=== PATIENT | male | born 1950 | race Caucasian/White ===

== ENCOUNTER 2017-04-10 04:59 | Inpatient (IN) | payer OTHER ==
[~2017-04-10] VITALS: Ht 177.8 cm; Wt 111.1 kg
[~2017-04-10 04:59] MED LIST: CRESTOR20 MG PO; GLUCOPHAGE XR500 MG PO; NEXIUM40 MG PO; NORCO 5-325 TA1 EACH PO; PAXIL40 MG PO; PROMETHAZINE-C120 ML PO; TAMSULOSIN HCL0.4 MG PO; ZPAK PO
[2017-04-10 05:51] VITALS: BP 123/83
[2017-04-10] MEDS ORDERED: FLOMAX0.4 MG PO (06:05)
[2017-04-10 08:46] VITALS: BP 115/73
[2017-04-10 12:36] VITALS: BP 136/77
[2017-04-10] MEDS ORDERED: HYDROCODONE-AP1 EAC6 PO (13:31)
[2017-04-10 15:58] VITALS: BP 135/82
== END 2017-04-10 17:48 | disposition short-term general hospital (02) | DRG 700 ==
LOC: 4W 04:59
DX: S37.031A Laceration of right kidney, unspecified degree, initial encounter (principal); I10 Essential (primary) hypertension; K21.9 Gastro-esophageal reflux disease without esophagitis; E11.9 Type 2 diabetes mellitus without complications; F32.9 Major depressive disorder, single episode, unspecified; F41.9 Anxiety disorder, unspecified; F17.210 Nicotine dependence, cigarettes, uncomplicated; E78.5 Hyperlipidemia, unspecified; Z79.899 Other long term (current) drug therapy; Z83.6 Family history of other diseases of the respiratory system; Z80.9 Family history of malignant neoplasm, unspecified; X58.XXXA Exposure to other specified factors, initial encounter; Y93.89 Activity, other specified; Y92.89 Other specified places as the place of occurrence of the external cause; Y99.8 Other external cause status; S37.011A Minor contusion of right kidney, initial encounter
CPT/HCPCS: 10045

== ENCOUNTER → 2017-05-05 | Outpatient (CLI) | payer OTHER ==
[~2017-05-05] MED LIST changes: +FLOMAX0.4 MG PO; +HYDROCODONE-AP1 EAC6 PO
== END ==
LOC: ULTRA 12:10
DX: S37.031D Laceration of right kidney, unspecified degree, subsequent encounter (principal); X58.XXXD Exposure to other specified factors, subsequent encounter; Y92.89 Other specified places as the place of occurrence of the external cause; Y99.8 Other external cause status

== ENCOUNTER → 2019-12-14 | Outpatient (CLI) | payer OTHER ==
[~2019-12-14] MED LIST changes: +ALLER-CHLOR4 MG PO; +BLACK ELDERBER1 EACH PO; +CARVEDILOL12.5 MG PO; +CIALIS5 MG PO; +COZAAR 25 MG TA25 MG PO; +CRANBERRY PLUS1 EAC1 PO; +GLUCOSAMINE CO1 EACH PO; +IBUPROFEN200 M1 PO; +LORATIDINE 10 M10 M1 PO; +MELATONIN10 M3 PO; +NASAL DECONGEST10 MG PO
== END ==
LOC: SJCVCIMAG 10:05
DX: I08.2 Rheumatic disorders of both aortic and tricuspid valves (principal); I45.2 Bifascicular block; R94.31 Abnormal electrocardiogram [ECG] [EKG]; I11.0 Hypertensive heart disease with heart failure; I50.42 Chronic combined systolic (congestive) and diastolic (congestive) heart failure; I44.7 Left bundle-branch block, unspecified; I42.0 Dilated cardiomyopathy; E78.5 Hyperlipidemia, unspecified; I71.4 Abdominal aortic aneurysm, without rupture; E11.9 Type 2 diabetes mellitus without complications; K21.9 Gastro-esophageal reflux disease without esophagitis; E78.00 Pure hypercholesterolemia, unspecified; F17.210 Nicotine dependence, cigarettes, uncomplicated; Z79.899 Other long term (current) drug therapy

== ENCOUNTER → 2019-12-17 | Outpatient (CLI) | payer OTHER | LOC: SJCVC 12:44 | DX: I45.2 Bifascicular block (principal); I42.8 Other cardiomyopathies; R94.31 Abnormal electrocardiogram [ECG] [EKG]; I50.22 Chronic systolic (congestive) heart failure; I25.10 Atherosclerotic heart disease of native coronary artery without angina pectoris; E11.9 Type 2 diabetes mellitus without complications; Z95.828 Presence of other vascular implants and grafts; F17.210 Nicotine dependence, cigarettes, uncomplicated; Z72.89 Other problems related to lifestyle ==

== ENCOUNTER 2020-01-09 06:32 | Observation (INO) | payer OTHER ==
[2020-01-09] VITALS (10 sets, daily range): BP systolic 89–122; BP diastolic 58–81
[~2020-01-09] VITALS: Ht 180.3 cm; Wt 108.0 kg
--- NOTE | ~2020-01-09 | D ---
[facility] [place] [address] DISCHARGE SUMMARY Name: GABE GARDINER Room #: 207-P [facility] M.R.#: [id number] Admission: 01/09/20 Attend Phys: Gagan Trejo MD Discharge: Date of : 46 Report #: [id number] THIS REPORT FOR: cc: Dioni Webb,Gagan Mayes MD ~ THIS REPORT FOR: //name// CC: Gagan Webb DISCHARGE DIAGNOSIS: Nonischemic cardiomyopathy. PROCEDURES PERFORMED: Bi-V ICD implantation. HISTORY: The patient is a 69-year-old male with history of nonischemic cardiomyopathy, QRS duration 178 milliseconds, [place] [employer] functional class 2-3 heart failure symptoms, who was here for biventricular ICD implantation. He underwent successful implantation of his device with a [employer] meat. He did have some limited targets on his coronary sinus. He had an anterolateral branch and a middle cardiac vein. I was able to get the lead into the anterolateral branch with good pacing and sensing thresholds. There were no procedure-related complications. HOSPITAL COURSE: The patient was monitored in the CCU overnight and did well. He did have some left shoulder pain post-device implant, which actually was related to his arm sling and this resolved when I took him out of the sling. Chest x-ray last night showed no pneumothorax. On the day of discharge, he was doing well. He denied any chest pain, shortness of breath, PND, orthopnea, presyncope or syncope. He had no fevers or chills. PHYSICAL EXAMINATION: GENERAL: No acute distress. HEENT: Oropharynx clear. NECK: Supple, no thyromegaly. HEART: Regular rate and rhythm with no murmurs, rubs or gallops. LUNGS: Clear to auscultation bilaterally. ABDOMEN: Soft, nontender. EXTREMITIES: No clubbing, cyanosis, edema. Incision was healing nicely with no significant bruising or hematoma. Device interrogation was performed, which showed normal device function and pacing thresholds. No arrhythmias were noted. He also underwent a PA lateral chest x-ray, which showed stable lead position and no pneumothorax. As such, he [address] [address] DISCHARGE SUMMARY Name[facility] #: [address] [place] [address]..#: [id number] Admission: 01/09/20 Attend Phys: Gagan Trejo MD Discharge: Date of : 46 Report #: [id number] was deemed stable for discharge home. He will continue with his same outpatient medications and I will see him in 7-10 days for site check. By: [id number] Gagan Trejo MD /nt
[~2020-01-09 06:32] MED LIST changes: -ALLER-CHLOR4 MG PO; -BLACK ELDERBER1 EACH PO; -CARVEDILOL12.5 MG PO; -CIALIS5 MG PO; -COZAAR 25 MG TA25 MG PO; -CRANBERRY PLUS1 EAC1 PO; -GLUCOSAMINE CO1 EACH PO; -IBUPROFEN200 M1 PO; -LORATIDINE 10 M10 M1 PO; -MELATONIN10 M3 PO; -NASAL DECONGEST10 MG PO
[2020-01-09 07:21] LABS: ABSOLUTE NEUTROPHILS 6.1 thou/uL (1.4-8.2); BASOPHILS 0.6 % (0.0-2.0); EOSINOPHILS 3.3 % (0.0-3.0); HEMATOCRIT 44.8 % (42.0-52.0); HEMOGLOBIN 14.9 gm/dL (14.0-18.0); LYMPHOCYTES 17.6 % (24.0-44.0); MCHC 33.3 g/dL (28.0-37.0); MONOCYTES 8.5 % (1.0-8.0); PLATELET COUNT 213 thou/uL (150-400); RBC 4.81 mil/uL (4.50-6.00); WBC 8.6 thou/uL (4.0-11.0)
[2020-01-09 07:23] LABS: PROTIME 10.7 Seconds (9.3-11.4)
[2020-01-09 07:24] LABS: CALCIUM 9.4 mg/dL (8.5-10.1); CREATININE 1.6 mg/dL (0.7-1.3); POTASSIUM 4.6 mmol/L (3.5-5.1)
[2020-01-09] MEDS ORDERED: CIALIS5 MG PO (07:49)
[2020-01-09] MEDS ORDERED: CARVEDILOL12.5 MG PO (07:51)
[2020-01-09] MEDS ORDERED: COZAAR 25 MG TA25 MG PO (07:51)
[2020-01-09] MEDS ORDERED: MELATONIN10 M3 PO ×2 (07:52→07:53)
[2020-01-09] MEDS ORDERED: LORATIDINE 10 M10 M1 PO (07:54)
[2020-01-09] MEDS ORDERED: ALLER-CHLOR4 MG PO (07:57)
[2020-01-09] MEDS ORDERED: NASAL DECONGEST10 MG PO (07:58)
[2020-01-09] MEDS ORDERED: CRANBERRY PLUS1 EAC1 PO (07:59)
[2020-01-09] MEDS ORDERED: BLACK ELDERBER1 EACH PO (08:00)
[2020-01-09] MEDS ORDERED: IBUPROFEN200 M1 PO (08:01)
[2020-01-09] MEDS ORDERED: GLUCOSAMINE CO1 EACH PO (08:04)
--- NOTE | 2020-01-09 19:38 | NUR ---
PATIENT ARRIVED FROM EP LAB, ALERT AND ORIENTED X4. C/O PAIN TO LT SHOULDER, MEDICATED, AND DR RODRIGUEZ NOTIFIED.ADMISION COMPLETED, AND ASSESSMENT COMPLETED. PATEINT WAS INSTRUCTED TO KEEP IMMOBOLIZER ON AND FOLLOW RESTRICTIONS. AND WILL CONTINUE WITH POC.
[2020-01-10 00:24] VITALS: BP 118/68
[2020-01-10 03:54] VITALS: BP 133/70
--- NOTE | 2020-01-10 04:09 | NUR ---
PT BEEN RESTING IN NO ACUTE DISTRESS.A/OX4.VSS.V-PACED ON MONITOR.ASSESSMENT COMPLETED DOCUMENTED.S/P BI-V ICD PLACEMENT,INCISION TO LEFT CHEST CLOSED WITH DERMABOND.IMMOBILIZER IN PLACE.PT BEEN IN THE CHAIR MOST OF THE NIGHT AND STATED THAT DR JOHNSON INSTRUCTED HIM THAT IT IS OKAY TO SIT UP IN THE CHAIR.REVIEWED POST PACEMAKER ICD EDUCATION/INSTRUCTION,VOICED UNDERSTANDING.POC IS TO HAVE PACEMAKER CHECK,CXR ADN THEN DISCHARGE TO HOME IF STABLE.VOIDS VIA URINAL.DENIES PAIN RATHER THAN ICD SITE SORENESS.WILL CONT TO MONITOR PER POC.
[2020-01-10 07:30] VITALS: BP 113/59; BP 90/63
[2020-01-10 10:23] VITALS: BP 133/70
--- NOTE | 2020-01-10 14:42 | NUR ---
ASSUMED CARE OF PATIENT AT 0700. ASSESSMENT COMPLETED. TELE STRIP PRINTED AND PLACED IN CHART. INTERROGATION OF PACEMAKER PERFORMED. CXR PERFORMED. PATIENT WEARING SHOULDER IMMOBILIZER WITH ARM DISTAL TO THE ELBOW OUT OF THE SLING, THIS IS OKAY WITH DR. JOHNSON. DISCHARGE APPROVED. DISCHARGE PAPERWORK AND MEDICARE FORMS SIGNED. RESTRICTIONS REVIEWED WITH THE PATIENT AND HE STATES THAT HE UNDERSTANDS. PATIENT STATES THAT HE FEELS BETTER THAN WHEN HE ARRIVED. PATIENT TAKEN VIA WHEELCHAIR TO THE MAIN ENTRANCE AND DRIVEN HOME BY HIS MALE FRIEND.
== END 2020-01-10 10:55 | disposition home or self-care (01) ==
LOC: CATH 06:32 → 2N 11:22 → CATH 12:29 → ENTRNSPT 01-10 10:33 → EDTRNSPTSTS 01-10 10:36 → 2N 01-10 10:55
PROVIDERS: ADMIT Internal Medicine Cardiovascular Disease
DX: I42.8 Other cardiomyopathies (principal)

== ENCOUNTER → 2020-12-19 | Outpatient (CLI) | payer OTHER ==
[~2020-12-19] MED LIST changes: +ALLER-CHLOR4 MG PO; +BLACK ELDERBER1 EACH PO; +CARVEDILOL12.5 MG PO; +CIALIS5 MG PO; +COZAAR 25 MG TA25 MG PO; +CRANBERRY PLUS1 EAC1 PO; +GLUCOSAMINE CO1 EACH PO; +IBUPROFEN200 M1 PO; +LORATIDINE 10 M10 M1 PO; +MELATONIN10 M3 PO; +NASAL DECONGEST10 MG PO
== END ==
LOC: CAT 08:05
PROVIDERS: ATTEND Surgery
DX: K57.30 Diverticulosis of large intestine without perforation or abscess without bleeding (principal); K43.2 Incisional hernia without obstruction or gangrene; N28.1 Cyst of kidney, acquired; N20.0 Calculus of kidney; R16.2 Hepatomegaly with splenomegaly, not elsewhere classified

== ENCOUNTER → 2021-01-08 | Outpatient (CLI) | payer OTHER | LOC: SJCVCIMAG 07:38 | PROVIDERS: ATTEND Internal Medicine | DX: I35.8 Other nonrheumatic aortic valve disorders (principal); I11.0 Hypertensive heart disease with heart failure; I77.819 Aortic ectasia, unspecified site; I44.7 Left bundle-branch block, unspecified; I25.5 Ischemic cardiomyopathy; I48.0 Paroxysmal atrial fibrillation; R06.00 Dyspnea, unspecified; R42 Dizziness and giddiness; E78.5 Hyperlipidemia, unspecified; F17.200 Nicotine dependence, unspecified, uncomplicated; E11.9 Type 2 diabetes mellitus without complications; Z79.899 Other long term (current) drug therapy ==

== ENCOUNTER → 2022-01-04 | Outpatient (CLI) | payer OTHER | LOC: SJCVCIMAG 12:37 | PROVIDERS: ATTEND Internal Medicine | DX: I35.8 Other nonrheumatic aortic valve disorders (principal); R94.31 Abnormal electrocardiogram [ECG] [EKG]; I13.0 Hypertensive heart and chronic kidney disease with heart failure and stage 1 through stage 4 chronic kidney disease, or unspecified chronic kidney disease; I50.42 Chronic combined systolic (congestive) and diastolic (congestive) heart failure; I42.0 Dilated cardiomyopathy; I44.7 Left bundle-branch block, unspecified; E78.5 Hyperlipidemia, unspecified; I71.4 Abdominal aortic aneurysm, without rupture; E11.22 Type 2 diabetes mellitus with diabetic chronic kidney disease; N18.2 Chronic kidney disease, stage 2 (mild); I65.23 Occlusion and stenosis of bilateral carotid arteries; I25.10 Atherosclerotic heart disease of native coronary artery without angina pectoris; I48.0 Paroxysmal atrial fibrillation; K21.9 Gastro-esophageal reflux disease without esophagitis; Z72.0 Tobacco use; Z95.810 Presence of automatic (implantable) cardiac defibrillator; Z98.890 Other specified postprocedural states; Z79.899 Other long term (current) drug therapy; Z88.8 Allergy status to other drugs, medicaments and biological substances ==